=== PATIENT | male | born 1985 | race Two or more races ===

== ENCOUNTER 2024-07-21 00:33 | Emergency (ER) | payer SELFPAY ==
[~2024-07-21] VITALS: Ht 170.2 cm; Wt 73.0 kg
[2024-07-21 00:57] VITALS: BP 126/87; PULSE 66; RESP 16; O2SAT 98
== END 2024-07-21 02:29 | disposition left against medical advice (07) ==
LOC: ER 00:33
DX: R10.9 Unspecified abdominal pain (principal); K59.00 Constipation, unspecified; R11.0 Nausea; Z53.21 Procedure and treatment not carried out due to patient leaving prior to being seen by health care provider